=== PATIENT | female | born 1995 | race Caucasian/White ===

== ENCOUNTER 2021-11-20 15:24 | Emergency (ER) | payer BC ==
[~2021-11-20] VITALS: Ht 152.4 cm; Wt 81.7 kg
[2021-11-20] MEDS ORDERED: EUTHYROX50 MCG PO (15:32)
== END 2021-11-20 16:46 | disposition home or self-care (01) ==
LOC: ER 15:24
DX: M79.672 Pain in left foot (principal); E03.9 Hypothyroidism, unspecified; Z88.2 Allergy status to sulfonamides; Z79.899 Other long term (current) drug therapy
CPT/HCPCS: 73630; 96372; 99283-25; J1885